=== PATIENT | male | born 1990 | race Caucasian/White ===

== ENCOUNTER 2017-02-18 21:12 | Emergency (ER) | payer BC ==
[2017-02-18 21:35] VITALS: BP 122/72
--- NOTE | 2017-02-18 21:54 | EDM.PDOC ---
ED HPI GENERAL MEDICAL PROBLEM - General Chief Complaint: General Stated Complaint: POSSIBLE ULCER Time Seen by Provider: 02/18/17 21:29 Source of Information: Reports: Patient History Limitations: Reports: No Limitations - History of Present Illness INITIAL COMMENTS - FREE TEXT/NARRATIVE: The patient presents with rectal bleeding. This started this evening after having 2 bowel movements. This happened after both bowel movements. He denies any pain. Both stools were loose. He had not gone for about 3 days. This has never happened before. He did say the toilet paper was rough and he may have accidentally partially inserted one of his fingers. He has no fever, chills, abdominal pain, nausea or vomiting. He had an ulcer in the past. Onset: Sudden Duration: Hour(s): Severity: Mild Improves with: Reports: None Worsens with: Reports: None Associated Symptoms: Reports: No Other Symptoms - Related Data Allergies Allergy/AdvReac Type Severity Reaction Status Date / Time No Known Allergies Allergy Verified 02/18/17 21:25 Home Meds: Home Meds . [No Known Home Meds] 02/18/17 [History] Past Medical History Respiratory History: Reports: Asthma Other Respiratory History: as child had asthma Gastrointestinal History: Reports: Other (See Below) Other Gastrointestinal History: ulcer at age 16 and treated with medication Musculoskeletal History: Reports: Other (See Below) Other Musculoskeletal History: scope to both knees for ligament issues Social & Family History - Tobacco Use Smoking Status *Q: Current Every Day Smoker Years of Tobacco use: 14 Packs/Tins Daily: 0.5 - Caffeine Use Caffeine Use: Reports: Coffee, Energy Drinks - Recreational Drug Use Recreational Drug Use: Yes Drug Use in Last 12 Months: No ED ROS GENERAL - Review of Systems Review Of Systems: See Below Constitutional: Reports: No Symptoms HEENT: Reports: No Symptoms Respiratory: Reports: No Symptoms Cardiovascular: Reports: No Symptoms Endocrine: Reports: No Symptoms GI/Abdominal: Reports: Bloody Stool : Reports: No Symptoms Musculoskeletal: Reports: No Symptoms Skin: Reports: No Symptoms ED EXAM, GENERAL - Physical Exam Exam: See Below Exam Limited By: No Limitations General Appearance: Alert, No Apparent Distress Ears: Normal External Exam Nose: Normal Inspection Head: Atraumatic, Normocephalic Neck: Normal Inspection Respiratory/Chest: No Respiratory Distress, Lungs Clear, Normal Breath Sounds Cardiovascular: Regular Rate, Rhythm, No Edema, No Murmur GI/Abdominal: Soft, Non-Tender, No Organomegaly, No Mass Rectal (Males) Exam: Other (Fissure to the posterior aspect. There is dried blood but no active bleeding. No hemorrhoids are seen.) Course - Vital Signs Last Recorded V/S: Last Vital Signs Temp 99.0 F 02/18/17 21:34 Pulse 92 02/18/17 21:34 Resp 20 02/18/17 21:34 BP 122/72 02/18/17 21:34 Pulse Ox 96 02/18/17 21:34 Departure - Departure Time of Disposition: 21:55 Disposition: Home, Self-Care 01 Condition: Good Clinical Impression: Fissure, anal - Discharge Information Referrals: Caden Sorensen MD [Physician] - 1 Week Forms: ED Department Discharge Additional Instructions: Drink plenty of fluids. After each bowel movement clean that area good. Put some warm water in the tub with soap and clean that area. Please return if you have more bleeding or pain. You may have more bleeding with each bowel movement for a few days but that should get better. Follow up with Dr Sorensen if you have any more problems.
== END 2017-02-18 22:19 | disposition home or self-care (01) ==
LOC: JD.ED 21:12
DX: K60.2 Anal fissure, unspecified (principal); J45.909 Unspecified asthma, uncomplicated; F17.210 Nicotine dependence, cigarettes, uncomplicated
CPT/HCPCS: 99282; 99284

== ENCOUNTER 2023-10-15 19:09 | Emergency (ER) | payer BC ==
[2023-10-15 19:19] VITALS: BP 151/90; PULSE 82
[2023-10-15] MEDS: Ketorolac 60 MG/2 ML SDV IM ONE (19:49)
[2023-10-15 19:59] LABS: APPEARANCE,URINE CLEAR (Clear); BILIRUBIN,URINE NEGATIVE (Negative); COLOR,URINE YELLOW (Yellow); GLUCOSE,URINE NEGATIVE (Negative); KETONES,URINE TRACE (Negative); LEUKOCYTE ESTERASE,URINE NEGATIVE (Negative); NITRITE,URINE NEGATIVE (Negative); OCCULT BLOOD,URINE NEGATIVE (Negative); PROTEIN,URINE NEGATIVE (Negative)
[2023-10-15 20:04] LABS: AMORPHOUS SEDIMENT,URINE FEW /hpf (NOT SEEN); BACTERIA,URINE FEW /hpf (FEW); EPITHELIAL CELLS,URINE 0-5 /hpf (0-5); MUCUS,URINE FEW /hpf (FEW); RBC,URINE 0-5 /hpf (0-5); WBC,URINE 0-5 /hpf (0-5)
== END 2023-10-15 21:10 | disposition home or self-care (01) ==
LOC: JD.ED 19:09
DX: M54.16 Radiculopathy, lumbar region (principal); F17.210 Nicotine dependence, cigarettes, uncomplicated
CPT/HCPCS: 81001; 96372; 99283; J1885